=== PATIENT | female | born 2000 | race American Indian/Alaskan Native ===

== ENCOUNTER 2020-08-21 14:29 | Emergency (ER) | payer SELFPAY ==
[2020-08-21 14:37] VITALS: BP 118/71
== END 2020-08-21 18:54 | disposition left against medical advice (07) ==
LOC: ED 14:29
DX: R50.9 Fever, unspecified (principal); M79.18 Myalgia, other site; J02.9 Acute pharyngitis, unspecified; Z53.21 Procedure and treatment not carried out due to patient leaving prior to being seen by health care provider